=== PATIENT | female | born 1950 | race Caucasian/White ===

== ENCOUNTER 2025-05-11 20:38 | Inpatient (IN) | payer MEDICARE ==
[~2025-05-11] VITALS: Ht 165.1 cm; Wt 117.1 kg
[2025-05-11 20:46] VITALS: BP 132/60
[2025-05-11 21:27] LABS: BASO # 0.0 10*3/uL (0.0-0.1); BASO % 0.6 % (0.0-1.0); EOS # 0.2 10*3/uL (0.0-0.4); EOS % 2.2 % (1.0-4.0); MEAN CELL VOLUME 86.6 fl (81.0-99.0); MEAN CORPUSCULAR HGB 24.9 pg (27.0-31.0); MEAN PLATELET VOLUME 9.1 fl (9.6-12.3); MONO # 0.5 10*3/uL (0.1-1.0); MONO % 7.0 % (3.0-9.0); NEUT # 4.5 10*3/uL (2.3-7.9); NEUT % 67.9 % (47.0-73.0); NUCLEATED RED BLOOD CELL 0.0 % (0.0-0.0); NUCLEATED RED BLOOD CELL 0.0 10*3/uL (0.0-0.0); PLATELET COUNT AUTOMATED 240 10*3/uL (130-400); RED CELL DISTRI WIDTH 16.9 % (0-14.5)
[2025-05-11 21:48] LABS: BUN 12 mg/dl (9-23); SGPT/ALT 15 U/L (5-49)
[2025-05-11 23:42] LABS: BILIRUBIN Negative (Negative); BLOOD Negative (Negative); CLARITY Cloudy (Clear); COLOR Dark Yellow (Yellow); KETONE Trace (Negative); LEUKO ESTERASE Negative (Negative); NITRITE Negative (Negative); PH 5.0 (4.5-8.0); SPECIFIC GRAVITY 1.025 (1.001-1.030); UROBILINOGEN 1.0 E.U./dl (0.0-1.0)
[2025-05-11] MEDS ORDERED: ACETAMINOPHEN 325 MG TAB PO PRN (23:45)
[2025-05-11] MEDS ORDERED: MG-AL HYDROXIDE/SIMETICONE 30 ML UDC PO PRN (23:45)
[2025-05-11] MEDS ORDERED: Menthol/Zinc Oxide 4 GM THIN T PRN (23:50)
[2025-05-11 23:57] LABS: BACTERIA 1+; HYALINE CAST 0-2; MUCOUS 1+; RBC 0-2 rbc/hpf (0-2)
[2025-05-11] MEDS ORDERED: ANASTROZOLE1 M1 PO (23:57)
[2025-05-11] MEDS ORDERED: ADULT LOW DOSE81 MG PO (23:58)
[2025-05-12] MEDS ORDERED: ATIVAN0.5 MG PO
[2025-05-12] MEDS ORDERED: BUPRENORPHINE1 EAC1 TD (00:04)
[2025-05-12] MEDS ORDERED: VITAMIN D3125 MCG PO (00:05)
[2025-05-12] MEDS ORDERED: VITAMIN B121000 MC3 PO (00:06)
[2025-05-12] MEDS ORDERED: DIPHENHYDRAMINE25 M7 PO (00:07)
[2025-05-12] MEDS ORDERED: EXELON1 EACH T (00:10)
[2025-05-12] MEDS ORDERED: DULCOLAX10 M1 R (00:10)
[2025-05-12] MEDS ORDERED: EXELON1 EAC1 T (00:11)
[2025-05-12] MEDS ORDERED: NATURE'S BLEND F1 MG PO (00:11)
[2025-05-12] MEDS ORDERED: PEPCID20 MG PO (00:11)
[2025-05-12] MEDS ORDERED: GLIPIZIDE XL5 M1 PO (00:12)
[2025-05-12] MEDS ORDERED: ATIVAN1 MG PO ×2 (00:15→00:36)
[2025-05-12] MEDS ORDERED: MELATONIN3 MG PO (00:16)
[2025-05-12] MEDS ORDERED: METFORMIN HCL500 M2 PO (00:18)
[2025-05-12] MEDS ORDERED: KAPSPARGO SPRI100 MG PO (00:19)
[2025-05-12] MEDS ORDERED: MULTIPLE VITAM1 EAC2 PO (00:20)
[2025-05-12] MEDS ORDERED: OXYCODONE HCL5 MG PO (00:22)
[2025-05-12] MEDS ORDERED: HEALTHYLAX17 GM PO ×2 (00:24)
[2025-05-12] MEDS ORDERED: REMERON15 M2 PO (00:26)
[2025-05-12] MEDS ORDERED: XARE20MG PO (00:29)
[2025-05-12] MEDS ORDERED: SENOKOT8.6 MG PO (00:30)
[2025-05-12] MEDS ORDERED: TRAZODONE50 MG PO (00:31)
[2025-05-12] MEDS ORDERED: ZINC50 M4 PO (00:32)
[2025-05-12] MEDS ORDERED: VISTARIL25 MG PO ×2 (00:32→00:37)
[2025-05-12] MEDS ORDERED: NAMENDA-5 PO (00:34)
[2025-05-12] MEDS ORDERED: DEPAKOTE125 M1 PO (00:35)
[2025-05-12] MEDS ORDERED: VISTARIL25 MG IM (00:38)
[2025-05-12] MEDS ORDERED: GEODON20 MG/1 ML IM (00:40)
[2025-05-12] MEDS ORDERED: STERILE WATER 110 ML IM (00:41)
[2025-05-12] MEDS ORDERED: LORazepam 1 MG TAB PO PRN (00:50)
[2025-05-12] MEDS ORDERED: Water, Sterile 10 ML VIAL IM PRN (00:50)
[2025-05-12] MEDS ORDERED: hydrOXYzine hydrochloride 50 MG/ML VIAL IM PRN (01:05)
[2025-05-12 01:17] VITALS: BP 141/56
[2025-05-12 06:51] LABS: BASO # 0.0 10*3/uL (0.0-0.1); BASO % 0.8 % (0.0-1.0); EOS # 0.2 10*3/uL (0.0-0.4); EOS % 3.2 % (1.0-4.0); MEAN CELL VOLUME 84.8 fl (81.0-99.0); MEAN CORPUSCULAR HGB 25.3 pg (27.0-31.0); MEAN PLATELET VOLUME 9.5 fl (9.6-12.3); MONO # 0.4 10*3/uL (0.1-1.0); MONO % 8.8 % (3.0-9.0); NEUT # 2.5 10*3/uL (2.3-7.9); NEUT % 53.3 % (47.0-73.0); NUCLEATED RED BLOOD CELL 0.0 % (0.0-0.0); NUCLEATED RED BLOOD CELL 0.0 10*3/uL (0.0-0.0); PLATELET COUNT AUTOMATED 214 10*3/uL (130-400); RED CELL DISTRI WIDTH 17.1 % (0-14.5)
[2025-05-12] MEDS ORDERED: Metformin 500 MG EXTENDED-RELEASE TABLET PO SCH (07:30)
[2025-05-12 07:31] LABS: BUN 11.0 mg/dl (9-23); LDL CHOLESTEROL 101.0 mg/dL (9-159); SGPT/ALT 12.0 U/L (5-49)
[2025-05-12 07:49] LABS: VITAMIN D, 25-HYDROXY 65.9 ng/mL (30-100)
[2025-05-12] MEDS ORDERED: ASPIRIN ENTERIC COATED 81 MG TAB PO SCH (09:00)
[2025-05-12] MEDS ORDERED: DIVALPROEX SODIUM 125 MG TAB PO SCH (09:00)
[2025-05-12] MEDS ORDERED: NYSTATIN 15 GM BOT T SCH (09:00)
[2025-05-12] MEDS ORDERED: ANASTROZOLE 1 MG TAB PO SCH (09:00)
[2025-05-12] MEDS ORDERED: METOPROLOL SUCCINATE XR 100 MG TAB PO SCH (09:00)
[2025-05-12] MEDS ORDERED: RIVAROXABAN 20 MG TAB PO SCH (17:00)
[2025-05-12] MEDS ORDERED: ACETAMINOPHEN 80 ML IV ONE (18:05)
[2025-05-12] MEDS ORDERED: OXYCODONE HCL (IR) 5 MG TAB PO PRN (19:00)
[2025-05-12] MEDS ORDERED: Memantine Hydrochloride 5 MG TAB PO SCH (21:00)
[2025-05-12] MEDS ORDERED: Rivastigmine Tartrate 9.5 MG/24 HR PATCH T SCH (21:00)
[2025-05-12] MEDS ORDERED: Mirtazapine 15 MG TAB PO SCH (21:00)
[2025-05-12] MEDS ORDERED: OXYCODONE HCL (IR) 5 MG TAB PO SCH (22:00)
[2025-05-13] MEDS ORDERED: IOHEXOL 300 MG/ML 100 ML VIAL IV ONE (08:50)
[2025-05-13 09:46] LABS: BASO # 0.0 10*3/uL (0.0-0.1); BASO % 0.8 % (0.0-1.0); EOS # 0.1 10*3/uL (0.0-0.4); EOS % 2.6 % (1.0-4.0); MEAN CELL VOLUME 85.7 fl (81.0-99.0); MEAN CORPUSCULAR HGB 24.8 pg (27.0-31.0); MEAN PLATELET VOLUME 9.1 fl (9.6-12.3); MONO # 0.5 10*3/uL (0.1-1.0); MONO % 9.0 % (3.0-9.0); NEUT # 2.9 10*3/uL (2.3-7.9); NEUT % 58.1 % (47.0-73.0); NUCLEATED RED BLOOD CELL 0.0 % (0.0-0.0); NUCLEATED RED BLOOD CELL 0.0 10*3/uL (0.0-0.0); PLATELET COUNT AUTOMATED 204 10*3/uL (130-400); RED CELL DISTRI WIDTH 17.0 % (0-14.5)
[2025-05-13 10:04] LABS: BUN 9.0 mg/dl (9-23)
[2025-05-13] MEDS ORDERED: Memantine Hydrochloride 5 MG TAB PO SCH (11:40)
[2025-05-14 06:07] LABS: BUN 9.0 mg/dl (9-23)
[2025-05-14 06:14] LABS: BASO # 0.0 10*3/uL (0.0-0.1); BASO % 0.7 % (0.0-1.0); EOS # 0.1 10*3/uL (0.0-0.4); EOS % 2.4 % (1.0-4.0); MEAN CELL VOLUME 86.4 fl (81.0-99.0); MEAN CORPUSCULAR HGB 24.7 pg (27.0-31.0); MEAN PLATELET VOLUME 10.2 fl (9.6-12.3); MONO # 0.4 10*3/uL (0.1-1.0); MONO % 7.5 % (3.0-9.0); NEUT # 3.7 10*3/uL (2.3-7.9); NEUT % 68.4 % (47.0-73.0); NUCLEATED RED BLOOD CELL 0.0 % (0.0-0.0); NUCLEATED RED BLOOD CELL 0.0 10*3/uL (0.0-0.0); PLATELET COUNT AUTOMATED 198 10*3/uL (130-400); RED CELL DISTRI WIDTH 16.9 % (0-14.5)
[2025-05-14] MEDS ORDERED: RIVASTIGMINE 13.3 MG/24 HR TDM T SCH ×2 (09:50→21:00)
[2025-05-14] MEDS ORDERED: RIVAROXABAN 20 MG TAB PO SCH (21:00)
[2025-05-15] MEDS ORDERED: LIDOCAINE 4% PATCH T SCH (09:45)
[2025-05-15 21:05] VITALS: BP 136/65
[2025-05-16 20:00] VITALS: BP 114/77
[2025-05-16] MEDS ORDERED: RAMELTEON 8 MG TAB PO SCH (21:00)
[2025-05-17 09:00] VITALS: BP 140/46
[2025-05-17] MEDS ORDERED: MED. FROM HOME 1 EACH EA T SCH (09:00)
[2025-05-17 20:00] VITALS: BP 155/99
[2025-05-17] MEDS ORDERED: Sulfamethoxazole/Trimethopri 1 TAB TAB PO SCH (22:55)
[2025-05-18 06:26] LABS: BASO # 0.0 10*3/uL (0.0-0.1); BASO % 0.2 % (0.0-1.0); EOS # 0.1 10*3/uL (0.0-0.4); EOS % 0.4 % (1.0-4.0); MEAN CELL VOLUME 84.7 fl (81.0-99.0); MEAN CORPUSCULAR HGB 25.5 pg (27.0-31.0); MEAN PLATELET VOLUME 10.1 fl (9.6-12.3); MONO # 0.7 10*3/uL (0.1-1.0); MONO % 5.3 % (3.0-9.0); NEUT # 11.5 10*3/uL (2.3-7.9); NEUT % 83.8 % (47.0-73.0); NUCLEATED RED BLOOD CELL 0.0 % (0.0-0.0); NUCLEATED RED BLOOD CELL 0.0 10*3/uL (0.0-0.0); PLATELET COUNT AUTOMATED 162 10*3/uL (130-400); RED CELL DISTRI WIDTH 17.7 % (0-14.5)
[2025-05-18 06:36] LABS: BUN 19.0 mg/dl (9-23)
[2025-05-18 08:24] VITALS: BP 128/40
[2025-05-18 20:00] VITALS: BP 145/46
[2025-05-19 07:14] LABS: MEAN CELL VOLUME 86.1 fl (81.0-99.0); MEAN CORPUSCULAR HGB 25.0 pg (27.0-31.0); MEAN PLATELET VOLUME 9.8 fl (9.6-12.3); NUCLEATED RED BLOOD CELL 0.0 % (0.0-0.0); NUCLEATED RED BLOOD CELL 0.0 10*3/uL (0.0-0.0); PLATELET COUNT AUTOMATED 178 10*3/uL (130-400); RED CELL DISTRI WIDTH 17.9 % (0-14.5)
[2025-05-19 07:40] LABS: MANUAL DIFF REFLEX YES
[2025-05-19 07:50] LABS: PLATELET SUFFICIENCY NORMAL (NORMAL)
[2025-05-19 17:39] LABS: BILIRUBIN Negative (Negative); BLOOD 2+ (Negative); CLARITY Turbid (Clear); COLOR Dark Yellow (Yellow); KETONE 1+ (Negative); LEUKO ESTERASE Trace (Negative); NITRITE Negative (Negative); PH 5.5 (4.5-8.0); SPECIFIC GRAVITY >= 1.030 (1.001-1.030); UROBILINOGEN 1.0 E.U./dl (0.0-1.0)
[2025-05-19 18:01] LABS: BACTERIA 4+; EPITHELIAL CELLS 21-30; RBC 16-20 rbc/hpf (0-2)
[2025-05-19 20:00] VITALS: BP 140/70
[2025-05-20 08:00] VITALS: BP 154/57
[2025-05-20 20:02] VITALS: BP 156/58
[2025-05-21 08:00] VITALS: BP 128/38
[2025-05-21 20:00] VITALS: BP 127/46
[2025-05-22 08:00] VITALS: BP 128/76
[2025-05-22] MEDS ORDERED: MEMANTINE HCL10 MG PO (10:13)
[2025-05-22] MEDS ORDERED: LIDOCAINE PAIN1 EACH T (10:13)
[2025-05-22] MEDS ORDERED: DIVALPROEX SOD125 MG PO (10:13)
[2025-05-22] MEDS ORDERED: RIVASTIGMINE1 EAC2 T (10:13)
[2025-05-22] MEDS ORDERED: DULOXETINE HCL60 MG PO (10:13)
[2025-05-22] MEDS ORDERED: DULOXETINE HCL30 MG PO (10:13)
[2025-05-22] MEDS ORDERED: RAMELTEON8 MG PO (10:13)
== END 2025-05-22 13:01 | DRG 885 ==
LOC: ED 20:38 → 3N 22:38
PROVIDERS: Internal Medicine; Nurse Practitioner Family; Student in an Organized Health Care Education/Training Program; ADMIT Psychiatry & Neurology Psychiatry; ATTEND Psychiatry & Neurology Psychiatry
PROC: GZHZZZZ Group Psychotherapy (ICD-10-PCS; 2025-05-12)
PROC: GZ51ZZZ Individual Psychotherapy, Behavioral (ICD-10-PCS; 2025-05-12)
PROC: 0HBRXZZ Excision of Toe Nail, External Approach (ICD-10-PCS; principal; 2025-05-13)
PROC: 0HBRXZZ Excision of Toe Nail, External Approach (ICD-10-PCS; 2025-05-13)
PROC: 0HBRXZZ Excision of Toe Nail, External Approach (ICD-10-PCS; 2025-05-13)
PROC: 0HBRXZZ Excision of Toe Nail, External Approach (ICD-10-PCS; 2025-05-13)
PROC: 0HBRXZZ Excision of Toe Nail, External Approach (ICD-10-PCS; 2025-05-13)
PROC: 0HBRXZZ Excision of Toe Nail, External Approach (ICD-10-PCS; 2025-05-13)
PROC: 0HBRXZZ Excision of Toe Nail, External Approach (ICD-10-PCS; 2025-05-13)
PROC: 0HBRXZZ Excision of Toe Nail, External Approach (ICD-10-PCS; 2025-05-13)
PROC: 0HBRXZZ Excision of Toe Nail, External Approach (ICD-10-PCS; 2025-05-13)
PROC: 0HBRXZZ Excision of Toe Nail, External Approach (ICD-10-PCS; 2025-05-13)
DX: F33.2 Major depressive disorder, recurrent severe without psychotic features (principal); R45.1 Restlessness and agitation; E11.65 Type 2 diabetes mellitus with hyperglycemia; E87.1 Hypo-osmolality and hyponatremia; N39.0 Urinary tract infection, site not specified; F02.A11 Dementia in other diseases classified elsewhere, mild, with agitation; D64.9 Anemia, unspecified; M35.00 Sjogren syndrome, unspecified; M17.12 Unilateral primary osteoarthritis, left knee; I10 Essential (primary) hypertension; F41.9 Anxiety disorder, unspecified; G30.9 Alzheimer's disease, unspecified; K58.9 Irritable bowel syndrome, unspecified; I48.0 Paroxysmal atrial fibrillation; F63.81 Intermittent explosive disorder; E78.2 Mixed hyperlipidemia; D72.810 Lymphocytopenia; E88.09 Other disorders of plasma-protein metabolism, not elsewhere classified; G60.9 Hereditary and idiopathic neuropathy, unspecified; R13.12 Dysphagia, oropharyngeal phase; F11.90 Opioid use, unspecified, uncomplicated; B35.1 Tinea unguium; Z88.8 Allergy status to other drugs, medicaments and biological substances; Z85.830 Personal history of malignant neoplasm of bone; Z79.01 Long term (current) use of anticoagulants; Z86.73 Personal history of transient ischemic attack (TIA), and cerebral infarction without residual deficits; Z85.3 Personal history of malignant neoplasm of breast; Z79.4 Long term (current) use of insulin